=== PATIENT | female | born 1945 | race Caucasian/White ===

== ENCOUNTER → 2017-11-04 | Outpatient (CLI) | payer OTHER | END | disposition home or self-care (01) | LOC: CFH 10:02 | PROVIDERS: ATTEND Family Medicine | DX: Z12.31 Encounter for screening mammogram for malignant neoplasm of breast (principal) | CPT/HCPCS: 77067 ==

== ENCOUNTER → 2017-12-18 | Outpatient (CLI) | payer OTHER | END | disposition home or self-care (01) | LOC: CFH 13:46 | PROVIDERS: ATTEND Nurse Practitioner Family | DX: K44.9 Diaphragmatic hernia without obstruction or gangrene (principal); J98.4 Other disorders of lung | CPT/HCPCS: 71046 ==